=== PATIENT | female | born 1960 ===

== ENCOUNTER 2023-04-08 19:40 | Emergency (ER) | payer SELFPAY ==
[2023-04-08 19:49] VITALS: BP 182/94; PULSE 82
== END 2023-04-08 20:20 | disposition home or self-care (01) ==
LOC: CC.ED 19:40
DX: I10 Essential (primary) hypertension (principal); Z79.899 Other long term (current) drug therapy
CPT/HCPCS: 99283; 99284

== ENCOUNTER 2023-04-14 07:36 | Emergency (ER) | payer SELFPAY ==
[2023-04-14 08:25] LABS: BASOPHILS ABSOLUTE AUTO 0.09 10^3/uL (0.00-0.50); BASOPHILS PERCENT AUTO 1.8 % (0-1); EOSINOPHILS ABSOLUTE AUTO 0.17 10^3/uL (0.00-1.50); EOSINOPHILS PERCENT AUTO 3.3 % (0-6); HEMATOCRIT 41.3 % (37.0-47.0); HEMOGLOBIN 13.1 g/dL (12.0-16.0); IMMATURE GRAN ABSOLUTE AUTO 0.01 10^3/uL (0.00-0.49); IMMATURE GRAN PERCENT AUTO 0.2 % (0.0-4.9); LYMPHOCYTES ABSOLUTE AUTO 1.56 10^3/uL (0.60-5.00); LYMPHOCYTES PERCENT AUTO 30.5 % (24-44); MEAN CORPUSCULAR HEMOGLOBIN 27.4 pg (27.0-32.0); MEAN CORPUSCULAR HGB CONC 31.7 g/dL (32.0-36.0); MEAN CORPUSCULAR VOLUME 86.4 fL (83.0-97.0); MONOCYTES ABSOLUTE AUTO 0.48 10^3/uL (0.00-1.50); MONOCYTES PERCENT AUTO 9.4 % (0-10); NEUTROPHILS ABSOLUTE AUTO 2.81 x10^3/uL (1.80-8.00); NEUTROPHILS PERCENT AUTO 54.8 % (41-71); PLATELET COUNT,PLT 278 10^3/uL (150-400); RED BLOOD CELL COUNT 4.78 x10^6/uL (4.00-5.50); WHITE BLOOD CELL COUNT,WBC 5.1 10^3/uL (4.0-11.0)
[2023-04-14 09:44] LABS: HEMOGLOBIN A1C 5.7 % (4.8-5.6)
[2023-04-14 09:46] LABS: ALBUMIN 3.4 g/dL (3.4-5.0); BILIRUBIN TOTAL 0.3 mg/dL (0.0-1.0); CALCIUM 9.2 mg/dL (8.4-10.1); CREATININE 0.7 mg/dL (0.6-1.0); EST CRCL DRUG DOSING (CG) 70.7 mL/min; POTASSIUM,K 3.5 mEq/L (3.5-5.0); PROTEIN TOTAL,TP 7.7 g/dL (6.4-8.2)
[2023-04-14] MEDS: Ketorolac 30 MG/ML SDV IM ONE (09:52)
[2023-04-14] MEDS: Orphenadrine 60 MG/2 ML Inj IM ONE (09:53)
== END 2023-04-14 10:15 | disposition home or self-care (01) ==
LOC: CC.ED 07:36
DX: S16.1XXA Strain of muscle, fascia and tendon at neck level, initial encounter (principal); R20.2 Paresthesia of skin; I10 Essential (primary) hypertension; Z79.899 Other long term (current) drug therapy; X50.1XXA Overexertion from prolonged static or awkward postures, initial encounter
CPT/HCPCS: 36415; 72125; 80053; 83036; 85025; 86140; 96372; 99284; J1885; J2360

== ENCOUNTER 2023-06-07 10:39 | Emergency (ER) | payer OTHER | END 2023-06-07 11:35 | disposition home or self-care (01) | LOC: CC.ED 10:39 | DX: S00.93XA Contusion of unspecified part of head, initial encounter (principal); Z79.899 Other long term (current) drug therapy; W22.8XXA Striking against or struck by other objects, initial encounter | CPT/HCPCS: 70450; 70486; 99284 ==